=== PATIENT | female | born 1995 | race Caucasian/White ===

== ENCOUNTER 2021-07-15 18:18 | Emergency (ER) | payer OTHER ==
[~2021-07-15] VITALS: Ht 160 cm; Wt 55.8 kg
[2021-07-15 18:43] VITALS: BP 129/88
[2021-07-15] MEDS ORDERED: AUGMENTIN 875-875 MG PO (18:58)
== END 2021-07-15 20:09 | disposition home or self-care (01) ==
LOC: ED 18:18
DX: S61.451A Open bite of right hand, initial encounter (principal); W55.01XA Bitten by cat, initial encounter; Y93.89 Activity, other specified; Y92.89 Other specified places as the place of occurrence of the external cause; Y99.8 Other external cause status

== ENCOUNTER 2021-07-18 18:40 | Emergency (ER) | payer OTHER ==
[~2021-07-18] VITALS: Ht 160 cm; Wt 55.8 kg
[~2021-07-18 18:40] MED LIST: AUGMENTIN 875-875 MG PO
[2021-07-18 18:43] VITALS: BP 133/80
== END 2021-07-18 19:03 | disposition home or self-care (01) ==
LOC: ED 18:40
DX: Z23 Encounter for immunization (principal); Z20.3 Contact with and (suspected) exposure to rabies; Z88.6 Allergy status to analgesic agent; Z88.8 Allergy status to other drugs, medicaments and biological substances

== ENCOUNTER 2021-07-22 17:45 | Emergency (ER) | payer OTHER ==
[2021-07-22 17:49] VITALS: BP 134/77
== END 2021-07-22 18:29 | disposition home or self-care (01) ==
LOC: ED 17:45
DX: Z23 Encounter for immunization (principal); Z88.8 Allergy status to other drugs, medicaments and biological substances; Z79.2 Long term (current) use of antibiotics

== ENCOUNTER 2021-07-29 17:32 | Emergency (ER) | payer OTHER ==
[~2021-07-29] VITALS: Ht 160 cm; Wt 55.8 kg
[2021-07-29 17:44] VITALS: BP 118/96
== END 2021-07-29 18:26 | disposition home or self-care (01) ==
LOC: ED 17:32
DX: Z23 Encounter for immunization (principal); Z88.8 Allergy status to other drugs, medicaments and biological substances